=== PATIENT | female | born 1985 | race Caucasian/White ===

== ENCOUNTER 2022-07-04 22:34 | Emergency (ER) | payer SELFPAY ==
[2022-07-04 22:40] VITALS: TEMP 98.3; BMI 33.6
[2022-07-05 01:21] LABS: BASO % 0.6 % (0-2.0); HEMATOCRIT 28.1 % (32.4-45.2); HEMOGLOBIN 8.9 GM/dL (10.7-15.3); LYMPH % 13.2 % (8-40); MCH 25.8 pg (25.7-33.7); MCHC 31.8 g/dl (32.0-36.0); MONO % 9.5 % (3.8-10.2); NEUT % 75.7 % (42.8-82.8); PLATELET COUNT 339 10^3/uL (134-434); RBC 3.47 M/mm3 (3.60-5.2); WHITE BLOOD COUNT 3.8 K/mm3 (4.0-10.0)
[2022-07-05 02:09] LABS: EPI CELLS 6 /uL (0-25.1); HYALINE CASTS 0 /uL (0-3.1); URINE APPEARANCE CLEAR; URINE BACTERIA 164 /uL (0-1359); URINE BILIRUBIN NEGATIVE (NEGATIVE); URINE COLOR YELLOW; URINE GLUCOSE (UA) NEGATIVE (NEGATIVE); URINE KETONE NEGATIVE (NEGATIVE); URINE LEUK ESTERASE NEGATIVE (NEGATIVE); URINE NITRITE NEGATIVE (NEGATIVE); URINE PROTEIN 1+ (NEGATIVE); URINE RBC 19 /uL (0-23.9); URINE UROBILINOGEN 0.2 mg/dL (0.2-1.0); URINE WBC 8 /uL (0-25.8)
[2022-07-05 02:18] LABS: CALCIUM 8.9 mg/dL (8.5-10.1)
[2022-07-05 02:19] LABS: ALBUMIN 2.4 g/dl (3.4-5.0)
[2022-07-05 02:22] LABS: CREATININE 0.5 mg/dL (0.55-1.3)
[2022-07-05 02:23] LABS: BLOOD UREA NITROGEN 11.8 mg/dL (7-18); TOT PROT 7.7 g/dl (6.4-8.2)
[2022-07-05 02:34] LABS: BILIRUBIN,TOTAL 0.2 mg/dL (0.2-1)
[2022-07-05 02:43] LABS: HCG,QUALITATIVE URINE Negative
[2022-07-05] MEDS ORDERED: ACETAMINOPHEN 325 MG TABLET (FP) PO ONE (06:33)
[2022-07-05] MEDS ORDERED: ACETAMINOPHEN 325 MG TABLET (FP) ONE (06:45)
[2022-07-05 06:49] VITALS: BP 123/76; PULSE 90; RESP 18
== END 2022-07-05 06:48 | disposition home or self-care (01) ==
LOC: JER 22:34
DX: R07.1 Chest pain on breathing (principal)
CPT/HCPCS: 0241U-QW; 36415; 71046-TC-FY; 71275-TC; 80053; 81003; 84484; 84703; 85025; 93005; 93010; 99285-25; Q9967